=== PATIENT | female | born 1985 | race American Indian/Alaskan Native ===

== ENCOUNTER 2023-05-31 17:29 | Emergency (ER) | payer MEDICAID ==
[2023-05-31] MEDS ORDERED: Bacitracin Oint 28.35 GM Tube TOP SCH (17:35)
[2023-05-31] MEDS ORDERED: Acetaminophen/HYDROcodone 325-5 MG Tab PO ONE (17:43)
[2023-05-31 18:02] VITALS: BP 170/88; PULSE 89
== END 2023-05-31 18:10 | disposition home or self-care (01) ==
LOC: JP.ED 17:29
DX: T23.132A Burn of first degree of multiple left fingers (nail), not including thumb, initial encounter (principal); T23.222A Burn of second degree of single left finger (nail) except thumb, initial encounter; K21.9 Gastro-esophageal reflux disease without esophagitis; Z79.899 Other long term (current) drug therapy; E66.9 Obesity, unspecified; Z68.30 Body mass index [BMI] 30.0-30.9, adult; X15.8XXA Contact with other hot household appliances, initial encounter
CPT/HCPCS: 99283; A9270